=== PATIENT | male | born 1975 | race African-American/Black ===

== ENCOUNTER 2019-12-06 23:04 | Emergency (ER) | payer MEDICAID ==
[~2019-12-06] VITALS: Ht 172.7 cm; Wt 115.0 kg
[2019-12-07] MEDS ORDERED: IBUPROFEN 600MG TABLET PO ONE (02:45)
[2019-12-07 02:47] VITALS: BP 130/89
== END 2019-12-07 02:53 | disposition home or self-care (01) ==
LOC: ER 23:04
DX: L72.8 Other follicular cysts of the skin and subcutaneous tissue (principal); R59.9 Enlarged lymph nodes, unspecified; J45.909 Unspecified asthma, uncomplicated; Z98.890 Other specified postprocedural states
CPT/HCPCS: 76641; 99284

== ENCOUNTER 2020-01-09 16:41 | Emergency (ER) | payer MEDICAID ==
[~2020-01-09] VITALS: Ht 172.7 cm; Wt 102.0 kg
[2020-01-09] MEDS ORDERED: IBUPROFEN 600MG TABLET PO ONE (17:15)
[2020-01-09 18:20] VITALS: BP 110/71
== END 2020-01-09 18:21 | disposition home or self-care (01) ==
LOC: ER 16:41
DX: K11.20 Sialoadenitis, unspecified (principal); J45.909 Unspecified asthma, uncomplicated; Z90.49 Acquired absence of other specified parts of digestive tract
CPT/HCPCS: 99282

== ENCOUNTER 2020-02-17 01:02 | Emergency (ER) | payer MEDICAID ==
[~2020-02-17] VITALS: Ht 172.7 cm; Wt 109.0 kg
[2020-02-17] MEDS ORDERED: KETOROLAC 60MG/2ML VIAL IM STA (02:10)
[2020-02-17 03:28] LABS: BASOPHILS % 0.7 % (0.0-2.0); EOSINOPHILS % 1.6 % (0.0-5.0); HEMATOCRIT. 44.1 % (42.0-52.0); HEMOGLOBIN. 14.1 g/dL (14.0-18.0); MEAN CORPUSCULAR HEMOGLOBIN 23.3 pg (28.0-32.0); MEAN CORPUSCULAR VOLUME 72.7 fL (80.0-94.0); MEAN PLATELET VOLUME 10.6 fl (7.4-10.4); MONOCYTES % 8.2 % (2.0-8.0); NEUTROPHILS % 47.5 % (40.0-76.0); PLATELET 280 x1000/uL (130-400); RED BLOOD CELL COUNT 6.07 mill/uL (4.7-6.1); RED CELL DISTRIBUTION WIDTH 15.4 % (11.6-14.6)
[2020-02-17 03:34] LABS: CHLORIDE 106 mEq/L (98-107)
[2020-02-17 04:30] VITALS: BP 107/84
== END 2020-02-17 05:00 | disposition home or self-care (01) ==
LOC: ER 01:02
DX: R07.89 Other chest pain (principal); J45.909 Unspecified asthma, uncomplicated; Z90.49 Acquired absence of other specified parts of digestive tract
CPT/HCPCS: 36415; 71045; 80053; 83880; 84484; 85025; 93005; 96372; 99285; J1885

== ENCOUNTER 2021-09-28 20:45 | Emergency (ER) | payer MEDICAID ==
[~2021-09-28] VITALS: Ht 175.3 cm; Wt 114.0 kg
[2021-09-28 23:30] VITALS: BP 116/86
[2021-09-28 23:41] LABS: BASOPHILS % 0.9 % (0.0-2.0); HEMATOCRIT. 41.4 % (42.0-52.0); HEMOGLOBIN. 13.3 g/dL (14.0-18.0); LYMPHOCYTES % 31.6 % (20.0-50.0); MEAN CORPUSCULAR HEMOGLOBIN 22.6 pg (28.0-32.0); MEAN CORPUSCULAR VOLUME 70.2 fL (80.0-94.0); MEAN PLATELET VOLUME 9.4 fl (7.4-10.4); MONOCYTES % 11.5 % (2.0-8.0); PLATELET 275 x1000/uL (130-400); RED CELL DISTRIBUTION WIDTH 15.3 % (11.6-14.6)
[2021-09-28 23:46] LABS: CHLORIDE 108 mEq/L (98-107)
[2021-09-29] MEDS ORDERED: IBUP-2028 MT (00:21)
[2021-09-29] MEDS ORDERED: AZIT250T12 MT (00:21)
[2021-09-29] MEDS ORDERED: IBUPROFEN 400MG TABLET PO ONE (00:30)
== END 2021-09-29 01:45 | disposition home or self-care (01) ==
LOC: ER 20:45
DX: J45.901 Unspecified asthma with (acute) exacerbation (principal); I10 Essential (primary) hypertension; E11.9 Type 2 diabetes mellitus without complications; F17.210 Nicotine dependence, cigarettes, uncomplicated; Z21 Asymptomatic human immunodeficiency virus [HIV] infection status; Z90.49 Acquired absence of other specified parts of digestive tract
CPT/HCPCS: 36415; 71045; 80053; 83880; 84484; 85025; 93005; 99285

== ENCOUNTER 2021-11-20 21:40 | Emergency (ER) | payer MEDICAID ==
[~2021-11-20] VITALS: Ht 175.3 cm; Wt 114.8 kg
[~2021-11-20 21:40] MED LIST: AZIT250T12 MT; IBUP-2028 MT
[2021-11-20] MEDS ORDERED: METHYLPREDNISOLONE SOD SUCC 125 MG/2 ML VIAL IV STA (23:06)
[2021-11-20] MEDS ORDERED: ALBUTEROL (0.083%) 2.5MG/3ML NEB HHN STA (23:06)
[2021-11-20] MEDS ORDERED: IPRATROPIUM BROMIDE (0.02%) 0.5MG/2.5ML NEB HHN STA (23:06)
[2021-11-20 23:12] LABS: BASOPHILS % 0.5 % (0.0-2.0); EOSINOPHILS % 2.3 % (0.0-5.0); HEMATOCRIT. 38.7 % (42.0-52.0); HEMOGLOBIN. 12.6 g/dL (14.0-18.0); LYMPHOCYTES % 33.7 % (20.0-50.0); MEAN CORPUSCULAR HEMOGLOBIN 22.7 pg (28.0-32.0); MEAN CORPUSCULAR VOLUME 69.5 fL (80.0-94.0); NEUTROPHILS % 55.5 % (40.0-76.0); PLATELET 279 x1000/uL (130-400); RED BLOOD CELL COUNT 5.57 mill/uL (4.7-6.1); RED CELL DISTRIBUTION WIDTH 15.5 % (11.6-14.6)
[2021-11-20] MEDS ORDERED: ASPIRIN 81MG TABLET PO ONE (23:15)
[2021-11-20 23:16] LABS: CHLORIDE 106 mEq/L (98-107)
[2021-11-20 23:22] LABS: PLATELET ESTIMATE NORMAL
[2021-11-21] MEDS ORDERED: ALBUTEROL (0.083%) 2.5MG/3ML NEB HHN STA (00:38)
[2021-11-21] MEDS ORDERED: P20 MT (01:45)
[2021-11-21] MEDS ORDERED: ALBU6.7H9 INH (01:45)
[2021-11-21 02:02] VITALS: BP 112/80
== END 2021-11-21 02:42 | disposition home or self-care (01) ==
LOC: ER 21:40
DX: J45.901 Unspecified asthma with (acute) exacerbation (principal); R07.89 Other chest pain; I10 Essential (primary) hypertension; Z90.49 Acquired absence of other specified parts of digestive tract; Z79.899 Other long term (current) drug therapy
CPT/HCPCS: 36415; 71045; 80053; 83880; 84484; 85025; 93005; 94640; 94644; 96374; 99285; J2930; Z7610

== ENCOUNTER 2022-02-20 02:56 | Emergency (ER) | payer MEDICAID ==
[~2022-02-20] VITALS: Ht 175.3 cm; Wt 109.6 kg
[~2022-02-20 02:56] MED LIST changes: +ALBU6.7H9 INH; +P20 MT
[2022-02-20] MEDS ORDERED: HYDROCODONE/ACETAMINOPHEN 10/325MG TABLET PO ONE (06:15)
[2022-02-20] MEDS ORDERED: IBUP-2029 MT (06:48)
[2022-02-20 06:58] VITALS: BP 129/84
== END 2022-02-20 07:02 | disposition home or self-care (01) ==
LOC: ER 02:56
DX: S60.211A Contusion of right wrist, initial encounter (principal); J45.909 Unspecified asthma, uncomplicated; Z90.49 Acquired absence of other specified parts of digestive tract; W18.30XA Fall on same level, unspecified, initial encounter; Y93.89 Activity, other specified; Y92.89 Other specified places as the place of occurrence of the external cause; Y99.8 Other external cause status
CPT/HCPCS: 73110; 99283